=== PATIENT | male | born 1985 | race Two or more races ===

== ENCOUNTER 2016-12-14 12:57 | Emergency (ER) | payer MEDICAID, OTHER ==
[~2016-12-14] VITALS: Ht 177.8 cm; Wt 95.3 kg
[2016-12-14 13:02] VITALS: BP 117/88
[2016-12-14] MEDS ORDERED: CEPHALEXIN MONOHYDRATE 500 MG CAPSULE PO ONE ×2 (13:10→13:30)
[2016-12-14] MEDS ORDERED: SULFAMETH/TRIMETH 800/160 MG 1 UDTAB TABLET PO ONE ×2 (13:10→13:30)
[2016-12-14] MEDS ORDERED: TDAP [DIPH/PERTUSSIS/TET] 0.5 ML VIAL IM ONE ×2 (13:11→13:30)
== END 2016-12-14 13:34 | disposition other institution (70) ==
LOC: ER 13:00
DX: T63.441A Toxic effect of venom of bees, accidental (unintentional), initial encounter (principal); L03.115 Cellulitis of right lower limb; Z23 Encounter for immunization; F17.200 Nicotine dependence, unspecified, uncomplicated; W57.XXXA Bitten or stung by nonvenomous insect and other nonvenomous arthropods, initial encounter; Y92.89 Other specified places as the place of occurrence of the external cause; Y93.89 Activity, other specified; Y99.8 Other external cause status
CPT/HCPCS: 90471; 90715; 99283; A4606; Z7610